=== PATIENT | female | born 1955 | race American Indian/Alaskan Native ===

== ENCOUNTER 2019-01-27 13:10 | Outpatient (CLI) | payer BC ==
--- NOTE | 2019-01-27 14:11 | Ultrasound Report ---
RIGHT BREAST ULTRASOUND HISTORY: Asymmetry on recent screening mammogram. COMPARISON: 01/21/2019 and 12/17/2018 mammograms FINDINGS: Sonographic evaluation focused upon the upper location of the right breast demonstrates nor mal fibroglandular structures with no mass, cyst or shadowing. IMPRESSION Negative right breast ultrasound. Recommend routine mammographic screening. BIRADS 1: Negative. Signer Name: Jos Travis MD Signed: 01/27/2019 2:07 PM Workstation Name: [id number]
== END 2019-01-27 13:11 | disposition home or self-care (01) ==
LOC: SPVWC 13:10
PROVIDERS: ATTEND Surgery
DX: R92.8 Other abnormal and inconclusive findings on diagnostic imaging of breast (principal)